=== PATIENT | female | born 2000 | race Caucasian/White ===

== ENCOUNTER 2025-01-03 06:23 | Inpatient (IN) ==
[2025-01-03] MEDS ORDERED: REGLAN INJ 10 MG VIAL IVP PRN (06:52)
[2025-01-03] MEDS ORDERED: AMPICILLIN VIAL 1 GRAM 1 G in NS 50 ML IV + SPIKE MINIBAG* 50 ML IV SCH (06:52)
[2025-01-03] MEDS ORDERED: ZOFRAN INJ 4 MG VIAL IVP PRN (06:52)
[2025-01-03] MEDS: D5 1/2 NS 1,000 ML 1,000 ML IV SCH (07:05)
[2025-01-03 07:17] LABS: INR 0.91 (0.8-1.3)
[2025-01-03] MEDS: NS 100 ML IV 100 ML ONE ×2 (07:18→11:18)
[2025-01-03] MEDS: AMPICILLIN VIAL 2 GRAM ONE (07:18)
[2025-01-03] MEDS: AMPICILLIN VIAL 2 GRAM 2 G in NS 100 ML IV + SPIKE MINIBAG* 100 ML IV SCH (07:18)
[2025-01-03] MEDS: OXYTOCIN 20 UNIT/1,000 ML-NS 20 UNIT/1,000 ML PLAST..BAG IV PRN (07:20)
[2025-01-03 07:24] LABS: URIC ACID 4.4 mg/dL (2.6-6.0)
--- NOTE | 2025-01-03 07:39 | DR.OB ---
OB QUICK NOTE Assessment/Plan (1) Elective induction of labor planned: Assessment/Plan: L&D 01/03/25 at 7:15am S-No complaint. O-Afebrile,VSS WBB=[id number] with good LTV, +accel, no decel. CTX=irregular and mild by palpation CVX=3cm/50%/-1/VTX AROM with clear fluid. IUPC and FSE placed. A-IUP at 39 2/7 weeks for induction PIH +GBS P-Begin pitocin induction F/U labs IV ABX in labor for +GBS Anticipate (2) induced hypertension: (3) GBS (group B Streptococcus carrier), +RV culture, currently :
[2025-01-03] MEDS: D5 1/2 NS 1,000 ML 1,000 ML IV ONE (07:42)
[2025-01-03] MEDS: LR 1,000 ML IV 1,000 ML IV ONE ×2 (08:00→10:55)
[2025-01-03] MEDS ORDERED: AMPICILLIN VIAL 2 GRAM 2 G in NS 100 ML IV 100 ML IV SCH (08:00)
[2025-01-03] MEDS: FENTANYL VIAL INJ 100 mcg ONE (09:03)
[2025-01-03] MEDS: NAROPIN EPIDURAL 0.2% 100 ML ONE (09:03)
[2025-01-03] MEDS: NUBAIN INJ 20 MG AMP IVP PRN (09:32)
[2025-01-03] MEDS: NUBAIN INJ 10 MG AMP ONE (09:36)
[2025-01-03] MEDS: AMPICILLIN VIAL 1 GRAM 1 G in NS 50 ML IV 50 ML IV SCH (10:55)
[2025-01-03] MEDS: AMPICILLIN VIAL 1 GRAM ONE (11:28)
[2025-01-03] MEDS: BETADINE SOLN ONE (12:25)
[2025-01-03] MEDS: PITOCIN ONE (14:06)
--- NOTE | 2025-01-03 14:15 | DR.OB ---
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 Infant and mother in stable condition. Head delivered over intact perineum. No nuchal cord. Nose and mouth bulb suctioned. Compound presentation with left hand at face. Body delivered over intact perineum. Cord clamped x 2 and cut. Infant handed to attendant. Cord sent for gases. Placenta delivered spontaneously / intact / 3 vessel cord. No CVX / vaginal / perineal tears noted. Viable male delivered by , VTX/OA, wt=7'2" and 5/8, stable to NBN. Mother stable to RR. PHJ=[id number]. (2) induced hypertension: (3) GBS (group B Streptococcus carrier), +RV culture, currently :
[2025-01-03] MEDS: PITOCIN IVP ONE (14:35)
[2025-01-03] MEDS ORDERED: MOTRIN TAB 800 MG PO PRN (15:17)
[2025-01-03] MEDS ORDERED: MILK OF MAGNESIA PO PRN (15:17)
[2025-01-03] MEDS ORDERED: AMBIEN PO PRN (15:17)
[2025-01-03] MEDS: FERROUS GLUCONATE PO SCH (16:27)
[2025-01-03] MEDS: VISBIOME PROBIOTIC CAP 112.5 B or equivalent PO SCH (16:27)
[2025-01-03] MEDS: MOTRIN TAB 800 MG PO PRN (16:27)
[2025-01-03] MEDS: OXYTOCIN 20 UNIT/1,000 ML-NS 20 UNIT/1,000 ML PLAST..BAG IV SCH (19:21)
[2025-01-03] MEDS: DERMOPLAST PAIN RELIEF SPRAY TOP PRN (23:03)
[2025-01-04] MEDS: COLACE CAP 100 MG PO SCH (01:27)
[2025-01-04 04:59] LABS: HEMATOCRIT 30.5 % (36.0-47.0)
[2025-01-04 05:08] LABS: HEMOGLOBIN 9.9 g/dL (12.0-16.0)
[2025-01-04] MEDS: PRENATAL PLUS PO SCH (09:15)
[2025-01-04] MEDS: ADACEL or BOOSTRIX TDaP VACCINE IM ONE (14:36)
[2025-01-04 17:10] VITALS: BP 128/64; PULSE 98; RESP 18; TEMP 98.6; O2SAT 100
== END 2025-01-04 17:00 | disposition home or self-care (01) | DRG 807 ==
LOC: LD 06:23 → MED/SURG 15:49
PROVIDERS: ADMIT Specialist; ATTEND Specialist
DX: Z37.0 Single live birth; Z3A.39 39 weeks gestation of pregnancy; O13.4 Gestational [pregnancy-induced] hypertension without significant proteinuria, complicating childbirth; O99.02 Anemia complicating childbirth; D50.8 Other iron deficiency anemias